=== PATIENT | male | born 1975 | race Caucasian/White ===

== ENCOUNTER 2022-11-20 14:05 | Outpatient (CLI) | payer BC, SELFPAY ==
--- NOTE | 2022-11-20 14:30 | CRLHL7_ITS ---
For Patients: As a result of the Century Cures Act, medical imaging exams and procedure reports are released immediately into your electronic medical record. You may view this report before your referring provider. If you have questions, please contact your health care provider. Indication: Lumbar disc herniation. Technique: Noncontrast sagittal and axial T1, T2, and sagittal STIR sequences are provided. Comparison: MRI 06/08/2021 Findings: Normal lumbar lordosis. No fractures. No prevertebral or paraspinal edema. No aggressive osseous lesions. The conus medullaris is normal in signal and location. Multilevel anterior osteophytic spurring and disc dehydration. Sacroiliac joint degenerative changes. T12-L1: Stable right paracentral disc protrusion that indents the ventral thecal sac. No significant spinal canal stenosis or neural foramen narrowing. Unchanged. L1-2: Moderate interspace narrowing. Circumferential disc bulge. Mild spinal canal stenosis. No neural foramina narrowing. Unchanged L2-3: Circumferential disc bulge and endplate osteophytic spurring. Bilateral facet arthrosis and left facet joint effusion. Stable mild spinal canal stenosis. Stable mild right neural foramen narrowing. Unchanged. L3-4: Enlargement of broad-based left paracentral disc herniation that results in new severe left subarticular recess stenosis and impingement of traversing left L4 nerve roots. Mild left neural foramen narrowing. No right neural foramen narrowing L4-5: Enlargement of central disc herniation and stable bilateral moderate facet arthrosis and ligamentum flavum buckling. Worsening severe spinal canal stenosis. Stable mild right neural foramen narrowing. No left neural foramen narrowing. L5-S1: Stable moderate facet arthrosis. No significant spinal canal stenosis or neural foramen narrowing. Unchanged. Impression: 1. No acute osseous or ligamentous abnormality. Stable alignment. 2. At L3-4, enlargement of left paracentral disc herniation results in new severe left subarticular recess stenosis and impingement of traversing L4 nerve roots. 3. At L4-5, enlargement of central disc herniation and stable facet arthrosis resulting in worsening severe spinal canal stenosis. 4. No high-grade neural foramen narrowing. Otherwise stable lumbar spondylosis at remaining levels. Dictated by Vikas Woods MD @ 11/21/2022 2:07:36 PM (Electronically Signed)
== END 2022-11-20 14:06 | disposition home or self-care (01) ==
PROVIDERS: PCP Family Medicine; Visit Provider Family Medicine
DX: M51.26 Other intervertebral disc displacement, lumbar region (principal); M48.062 Spinal stenosis, lumbar region with neurogenic claudication; M54.16 Radiculopathy, lumbar region
CPT/HCPCS: 72148

== ENCOUNTER 2022-12-25 07:07 | Outpatient (CLI) | payer BC, SELFPAY | END 2022-12-25 07:08 | disposition home or self-care (01) | PROVIDERS: PCP Family Medicine; Visit Provider Family Medicine | DX: M48.062 Spinal stenosis, lumbar region with neurogenic claudication (principal); M54.16 Radiculopathy, lumbar region | CPT/HCPCS: 62323; J0702; Q9966 ==

== ENCOUNTER 2023-07-16 09:10 | Outpatient (CLI) | payer BC, SELFPAY | END 2023-07-16 09:11 | disposition home or self-care (01) | LOC: INJ CL 09:10 | PROVIDERS: PCP Family Medicine; Visit Provider Family Medicine | DX: M54.16 Radiculopathy, lumbar region (principal); M51.26 Other intervertebral disc displacement, lumbar region; M48.062 Spinal stenosis, lumbar region with neurogenic claudication | CPT/HCPCS: 62323; J0702; Q9966 ==

== ENCOUNTER 2023-10-23 07:56 | Emergency (ER) | payer BC, SELFPAY ==
[2023-10-23 07:59] VITALS: BP 187/99; PULSE 69; RESP 20; TEMP 36.2; O2SAT 98; BMI 44.9
[2023-10-23 08:13] VITALS: O2SAT 95
--- NOTE | 2023-10-23 08:13 | CRLHL7_ITS ---
For Patients: As a result of the Century Cures Act, medical imaging exams and procedure reports are released immediately into your electronic medical record. You may view this report before your referring provider. If you have questions, please contact your health care provider. INDICATION: Chest pain TECHNIQUE: CT chest PE was acquired with 95 cc Isovue 370 intravenous contrast. COMPARISON: None. FINDINGS: Heart and vasculature: Contrast opacification of the pulmonary arterial tree is adequate. No sign of pulmonary embolism. Thoracic aorta is normal in caliber. No pericardial effusion. Lungs and pleural: No pleural effusion or pneumothorax. No focal consolidation. Lymph nodes/mediastinum: No mediastinal, hilar, or axillary adenopathy. Chest wall: No masses. Upper abdomen: Diffusely decreased density of the liver without focal intrahepatic lesion. Bones: Unremarkable for age. IMPRESSION: 1. No evidence of pulmonary embolus. 2. No acute pulmonary consolidation. 3. Moderate hepatic steatosis. Please note that all CT scans at this facility use dose modulation, iterative reconstruction, and/or weight-based dosing when appropriate to reduce radiation dose to as low as reasonably achievable. Dictated by Todd Flores MD @ 10/23/2023 9:01:55 AM (Electronically Signed)
[2023-10-23] MEDS: ASPIRIN 81 MG TAB.CHEW 324 MG PO (08:21)
[2023-10-23 08:30] LABS: Basophils Absolute Auto 0.05 K/uL (0.00-0.30); Basophils Percent Auto 0.7 % (0.0-3.0); Eosinophils Percent Auto 1.4 % (0.0-7.0); Hematocrit 44.8 % (37.0-53.0); Immature Granulocytes Abs Auto 0.02 K/uL (0.00-0.30); Immature Granulocytes Pct Auto 0.3 %; Lymphocytes Absolute Auto 2.01 K/uL (0.90-2.90); Lymphocytes Percent Auto 28.6 % (20-44); Mean Corpuscular HGB Conc 34 gm/dL (32-36); Mean Corpuscular Hemoglobin 29 pg (26-34); Mean Corpuscular Volume 87 fL (80-100); Monocytes Percent Auto 12.8 % (0.0-11.0); Neutrophils Absolute Auto 3.94 K/uL (1.7-7.0); Neutrophils Percent Auto 56.2 % (42.0-72.0); Platelet Count* 188 K/uL (140-440); RDW Coefficient of Variation % 12.8 % (11.5-15.5); Red Blood Count 5.14 m/uL (4.30-5.90); White Blood Count* 7.02 K/uL (4.50-11.00)
[2023-10-23 08:31] LABS: Slide Review Reflex No
[2023-10-23 08:42] LABS: Chloride* 106 mmol/L (96-114)
[2023-10-23 08:43] LABS: Potassium* 4.2 mmol/L (3.6-5.1); Sodium* 140 mmol/L (135-149)
[2023-10-23 08:45] LABS: Creatinine* 0.8 mg/dL (0.5-1.5); Est. Creatinine Clearance* 131.29; Estimated Glomerular Filt Rate 109 ml/min
[2023-10-23 08:46] LABS: Anion Gap 8 mEq/L (7-15); Blood Urea Nitrogen* 15 mg/dL (5-24); Calcium* 9.2 mg/dL (8.4-10.6); Carbon Dioxide* 26 mmol/L (20-32); Glucose* 112 mg/dL (60-115)
[2023-10-23 08:49] LABS: C Reactive Protein* 0.7 mg/dL (0.5-1.0)
--- NOTE | 2023-10-23 09:03 | ED_ITS ---
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 Worse when he flexes and extends his shoulders, and also when he reaches out laterally or squeezes arms type together. He has had a slight dry cough I think that is related to allergies. 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 He has had no bleeding or clotting problems, no leg swelling or edema. He has had no nausea, diaphoresis, left arm right arm pain, no neck pain. The patient has had hypertension and is on a small dose of lisinopril. No fevers, no trauma or injury to the chest. 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 Related Data Home Medications ?Medication ?Instructions ?Recorded ?Confirmed lisinopril 10 mg tablet 10 mg PO DAILY 10/23/23 10/23/23 Allergies Allergy/AdvReac Type Severity Reaction Status Date / Time Penicillins Allergy Verified 10/23/23 08:02 Review of Systems Status of ROS: Reports: 6 or more systems reviewed and unremarkable except as noted in History and below Exam Narrative: Exam Narrative: Objective: Vital signs show elevated blood pressure, O2 sat is 95-90% on room air No apparent distress pleasant man No cyanosis No scleral edema, no facial asymmetry Neck is supple Chest clear Heart rhythm regular heart murmur Abdomen benign soft nontender Abdomen extremities are no edema neurologic nonfocal, good peripheral perfusion noted Const: Vital Signs, click to edit/add: Vital Signs - 24 hr 10/23/23 07:59 10/23/23 08:13 10/23/23 09:18 Temperature 97.1 F L Pulse Rate [Right Pulse Oximeter] 69 62 Respiratory Rate 20 20 Blood Pressure [Ri ght Upper Arm] 187/99 H Pulse Oximetry 98 95 98 Oxygen Delivery Me thod Room Air Room Air Course Vital Signs Vital signs: Initial Vital Signs Temperature 97.1 F L 10/23/23 07:59 Temperature Source Temporal Artery Scan 10/23/23 07:59 Pulse Rate 69 10/23/23 07:59 Respiratory Rate 20 10/23/23 07:59 Blood Pressure 187/99 H 10/23/23 07:59 Blood Pressure Mean 128 H 10/23/23 07:59 Blood Pressure Position Sitting 10/23/23 07:59 Pulse Oximetry 98 10/23/23 07:59 Oxygen Delivery Method Room Air 10/23/23 07:59 Vital Signs Temperature 97.1 F L 10/23/23 07:59 Pulse Rate 69 10/23/23 07:59 Respiratory Rate 20 10/23/23 07:59 Blood Pressure 187/99 H 10/23/23 07:59 Pulse Oximetry 98 10/23/23 07:59 Oxygen Delivery Method Room Air 10/23/23 07:59 Temperature 97.1 F L 10/23/23 07:59 Pulse Rate 62 10/23/23 09:18 Respiratory Rate 20 10/23/23 09:18 Blood Pressure 187/99 H 10/23/23 07:59 Pulse Oximetry 98 10/23/23 09:18 Oxygen Delivery Method Room Air 10/23/23 09:18 Medications Administered Medications: Discontinued Medications Generic Name Dose Route Start Last Admin Trade Name Neema PRN Reason Stop Dose Admin Aspirin 324 mg 10/23/23 08:13 10/23/23 08:21 Aspirin 81 Mg Tab.Chew PO 10/23/23 08:14 324 mg ONCE ONE Administration Medical Decision Making [facility] Narrative Medical decision making narrative: 40-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 At this point it does not sound cardiac. Sounds more soft tissue related specially since it is worse with movement. 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 Will give him aspirin now and he was comfortable this plan. Addendum 9:07 a.m.: Given the patient's duration of symptoms I do not think a repeat troponin is necessary given his troponin now is 0, his EKG shows normal sinus rhythm normal EKG by my read. His CT scan of the chest is unremarkable for PE or consolidation. I think observation at this point, Advil or an anti- inflammatory for 5-7 days would be reasonable and a recheck with regular doctor as needed. Patient was comfortable plan. Lab Data Labs: Lab Results 10/23/23 10/23/23 Range/Units 08:14 08:15 WBC 7.02 (4.50-11.00) K/uL RBC 5.14 (4.30-5.90) m/uL Hgb 15.0 (13.5-17.5) gm/dL Hct 44.8 (37.0-53.0) % MCV 87 (80-100) fL MCH 29 (26-34) pg MCHC 34 (32-36) gm/dL RDW Coeff of Delphine 12.8 (11.5-15.5) % Plt Count 188 (140-440) K/uL Neut % (Auto) 56.2 (42.0-72.0) % Lymph % (Auto) 28.6 (20-44) % [place] % (Auto) 12.8 H (0.0-11.0) % Eos % (Auto) 1.4 (0.0-7.0) % Baso % (Auto) 0.7 (0.0-3.0) % Neut # (Auto) 3.94 (1.7-7.0) K/uL Lymph # (Auto) 2.01 (0.90-2.90) K/uL [place] # (Auto) 0.90 (0.00-0.90) K/UL Eos # (Auto) 0.10 (0.00-0.50) K/uL Baso # (Auto) 0.05 (0.00-0.30) K/uL Abs Immat Gran (auto) 0.02 (0.00-0.30) K/uL Imm/Tot Granulo (auto) 0.3 % Sodium 140 (135-149) mmol/L Potassium 4.2 (3.6-5.1) mmol/L Chloride 106 (96-114) mmol/L Carbon Dioxide 26 (20-32) mmol/L Anion Gap 8 (7-15) mEq/L BUN 15 (5-24) mg/dL Creatinine 0.8 (0.5-1.5) mg/dL Estimated Creat Clear 131.29 Estimated GFR 109 ml/min Glucose 112 (60-115) mg/dL Calcium 9.2 (8.4-10.6) mg/dL C-Reactive Protein 0.7 (0.5-1.0) mg/dL POC Troponin I 0.00 L (0.01-0.04) ng/ml Discharge Plan Discharge Clinical Impression: Acute chest wall pain Patient Disposition: Home, Self-Care Condition: Stable Additional Instructions: Avoid heavy lifting but certainly can be active, Advil 2 tablets 3 times a day for the next 5-7 days, return and see her regular doctor as needed. Return to ED problems or concerns. Activity Level: Light activity Activity Detail: Would avoid heavy lifting over 50 lb of possible Discharge Diet: Regular Prescriptions: No Action lisinopril 10 mg tablet 10 mg PO DAILY Follow Up/Referrals: Kai Stein MD [Primary Care Provider] - Stand Alone Forms: [employer] Info Instructions
[2023-10-23 09:18] VITALS: PULSE 62; RESP 20; O2SAT 98
== END 2023-10-23 09:19 | disposition home or self-care (01) ==
PROVIDERS: Emergency Provider Family Medicine; PCP Family Medicine
DX: R07.89 Other chest pain (principal)
CPT/HCPCS: 36415; 71275; 80048; 84484; 85025; 86140; 93005; 94761; 99284; 99285; A9270; Q9967

== ENCOUNTER 2024-05-08 07:14 | Outpatient (CLI) | payer BC, SELFPAY | END 2024-05-08 07:15 | disposition home or self-care (01) | LOC: INJ CL 07:16 | PROVIDERS: PCP Family Medicine; Visit Provider Family Medicine | DX: M54.16 Radiculopathy, lumbar region (principal); M51.26 Other intervertebral disc displacement, lumbar region | CPT/HCPCS: 62323; J0702; Q9966 ==

== ENCOUNTER 2024-05-23 22:03 | Emergency (ER) | payer BC, SELFPAY ==
--- OUTSIDE RECORDS SUMMARY | 2024-05-23 22:05 | XMS_ITS | Clinical Summary ---
Author Organization [facility] Address [place], [place] [address] Care Team Providers Care Registration Rep Name Role Phone Tate Coreas MD Unavailable [phone] Kai Stein MD Primary Care Provider [phone] Earl Sam MD Unavailable Allergies Active Allergy Reactions Criticality Noted Date Comments Penicillins Nausea And Vomiting Low 02/10/2016 Medications indomethacin (INDOCIN) 50 mg capsuleIndication s:History of gout Take 1 Capsule (50 mg) by mouth three times daily with meals. Take 1 tablet three times daily for 3 days as needed for a gout attack. 9 Capsule 1 02/14/20 24 Active methylPREDNISolon e (Medrol, Claudio,) 4 mg tabletIndications :Lumbar radiculopathy Take by mouth as instructed per packaging. 21 Tablet 05/01/19 25 Active lisinopriL (PRINIVIL; ZESTRIL) 10 mg tabletIndications :Essential hypertension Take 1 Tablet (10 mg) by mouth once daily. 90 Tablet 2 05/11/19 25 Active lisinopriL (PRINIVIL; ZESTRIL) 10 mg tabletIndications :Essential hypertension Take 1 Tablet (10 mg) by mouth once daily. 90 Tablet 3 04/01/20 24 025 Discontin ued(*Avai lability/ Formulary change/Co st of medicatio n) Active Problems Problem Noted Date Diagnosed Date Lumbar radiculopathy 11/02/2022 Cellulitis of skin overlying right elbow w/o joint involvement 05/25/2011 Fatty liver 07/07/2008 Dysthymic disorder 12/09/2006 Premature ejaculation 12/09/2006 Gout Resolved Problems Problem Noted Date Diagnosed Date Resolved Date Impotence of organic origin 12/09/2006 12/09/2006 Encounters Date Type Department Care Team Description 05/10/2024 Refill [facility] [address] [facility] [address] Kai Stein MD Refill Request (Lisinopril) 05/08/2024 7:40 AM [employer]ATCH [employer]AL M[employer]DER Office Visit [facility] at [address] [address] Earl Sam MD Procedure (L4-5 ILESI) 05/07/2024 Travel 05/01/2024 Medical Messaging [facility] [address] [place] [address] Earl Sam MD Dawson carey 04/02/2024 Telephone [facility] [address] [place] [address] Valentin Hunt MD Error-please disregard 04/01/2024 3:40 PM [employer] Office Visit [facility] [address] [place] [address] Kai Stein MD Physical (48 years/Review blood pressure) 03/31/2024 Travel 02/28/2024 Refill [facility] [address] [place] [address] Kai Stein MD Refill Request (Indomethacin) 02/27/2024 Refill [facility] [address] [place] [address] Kai Stein MD Refill Request (Indomethacin) 02/26/2024 Refill [facility] [address] [place] [address] Kai Stein MD Refill Request (Indomethacin) 02/25/2024 Refill [facility] [address] [place] [address] Kai Stein MD Refill Request (Indomethacin) from Last 3 Months Immunizations Name Administration Dates Next Due Td (Age >=7 Years) 09/21/1996 Tdap 02/13/2023,09/16/2006 Family History Medical History Relation Name Comments Other cancer Father Adopted by this Dad Cancer-breast Sister Remission Relation Name Status Comments Father Alive Mother Alive Sister Alive Social History Tobacco Use Types Packs/Day Years Used Date Smoking Tobacco: Never Smokeless Tobacco: Never Tobacco Cessation:Counseling Given: Not Answered Alcohol Use Standard Drinks/Week Comments Not Currently 0 (1 standard drink = 0.6 oz pure alcohol) very little; less than 6 per months PHQ-2 Answer Date Recorded PHQ-2 TOTAL SCORE 0 04/01/2024 Social Connections Answer Date Recorded Do you often feel lonely or isolated from those around you? 0 04/01/2024 Alcohol Use Answer Date Recorded How often do you have a drink containing alcohol ? 1 04/01/2024 How many drinks containing a lcohol do you have on a typical day when you are drinking? 0 04/01/2024 How often do you have five or more drinks on one occasion? 0 04/01/2024 Financial Resource Strain Answer Date R ecorded Difficulty of Paying Living Expenses 3 04/01/2024 Difficulty of Paying Living Expenses Not on file 04/01/2024 Food Insecurity Answer Date Recorded Do you worry your food will run out before you are able to buy more? 1 04/01/2024 Transportation Needs Answer Date Record ed Does lack of transportation keep you from medica l appointments? 1 04/01/2024 Does lack of transportation keep you from work, meetings or getting things that you need? 1 04/01/2024 Housing Stability Answer Date Recorded What is your housing situation today? 1 04/01/2024 Utilities Answer Date Recorded Do you have trouble paying f or utilities (for example, heat, electricity, water, phone)? 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 Not on file Not on file Not on file Obstetrics History Last Filed Vital Signs Vital Sign Reading Time Taken Comments Blood Pressure 138/88 04/01/2024 4:28 PM [employer] Pulse 66 04/01/2024 4:02 PM [employer] Temperature 36.4 C (97.5 F) 04/01/2024 4:02 PM [employer]AL [employer]DER Respiratory Rate 16 07/12/2011 1:36 PM CDT Oxygen Saturation 98% 04/01/2024 4:02 PM [employer]AL M[employer]DER Inhaled Oxygen Concentration - - Weight 164.8 kg (363 lb 6.4 oz) 04/01/2024 4:02 PM [employer]AL M[employer] Height 187.5 cm (6' 1.82) 04/01/2024 4:02 PM CS T Body Mass Index 46.89 04/01/2024 4:02 PM [employer]AL M[employer]DER Plan of Treatment Upcoming Encounters Date Type Department Care Team (Late st Contact Info) Description 07/02/2024 3:00 PM CDT Office Visit [facility] [address] [place] [address] Earl Sam MD [address] [place] [address] Health Maintenance Due Date Last Done Comments Colonoscopy through age 75 06/30/2020 COVID-19 vaccine series ( season) 2023 Influenza for age 9-49 12/15/2023 BMI (ht and wt on same day) for age 18+ 04/01/2025 04/01/2024, 02/13/2023, 05/28/2019, Additional history exists Depression screening for age 12+ 04/02/2025 04/02/2024, 04/01/2024, 02/13/2023, Additional history exists Lipids for age 45-75 04/01/2029 04/01/2024, 04/12/20 23 Tetanus booster 02/13/2033 02/13/2023, 0607/2006, 09/21/1996 Tdap Completed 02/13/2023, 09/16/2006 HIV for age 15-65 Completed 04/12/2023 Hepatitis C screening for age 18-79 Completed 04/12/2023 Pneumococcal series for age 6-49 Aged Out No longer eligible based on patient's age to complete this topic Procedures Procedure Name Priority Date/Time Associated Diagnosis Comments AMB EPIDURAL STEROID INJECTION Routine 05/08/2024 8:16 AM WATCH [employer]STAL M[employer]DER Lumbar radiculopathy Lumbar disc herniation Spinal stenosis of lumbar region with neurogenic claudication MI NJX DX/THER SBST INTRLMNR LMBR/SAC W/IMG GDN Routine 05/08/2024 12:00 AM [employer]STAL M[employer]DER Lumbar radiculopathy Lumbar disc herniation Spinal stenosis of lumbar region with neurogenic claudication BASIC METABOLIC PANEL Routine 04/01/2024 4:52 PM WATCH [employer]STAL M[employer]DER Essential hypertension LIPID PANEL W REFLEX MEASURED LDL Routine 04/01/2024 4:52 PM WATCH [employer]STAL MOLDER Lipid screening ANTI HIV 1/2 Routine 04/12/2023 3:07 PM [employer]AL [employer] Screening for HIV (human immunodeficiency virus) ANTI HCV Routine 04/12/2023 3:07 PM [employer]AL [employer] Need for hepatitis C screening test from Last 3 Months or Most Recently Relevant to Health Maintenance Results * MI NJX DX/THER SBST INTRLMNR LMBR/SAC W/IMG GDN (05/08/2024 12:00 AM WATCH CRYSTAL MOLDER) us Earl Sam MD PB - NERVOUS SYSTEM SERVIC ES Final Result * (ABNORMAL) LIPID PANEL W REFLEX MEASURED LDL (04/01/2024 4:52 PM WATCH CRYSTAL MOLDER) CHOLESTEROL, TOTAL 169 <200 mg/dL [facility] HDL CHOLESTEROL 34(L) > OR = 40 mg/dL [facility] TRIGLYCERIDES 199(H) <150 mg/dL [facility] LDL-CHOLESTEROL 103(H) mg/dL (calc) [facility] Comment: Reference range: <100 Desirable range <100 mg/dL for primary prevention; <70 mg/dL for patients with CHD or diabetic patients with > or = 2 CHD risk factors. LDL-C is now calculated using the Keily calculation, which is a validated novel method providing better accuracy than the Friedewald equation in the estimation of LDL-C. Valentin PEPE et al. CHITO. 2013;310(19): 8527-3396 (http://education.OnlineMarket/faq/QGW539) CHOL/HDLC RATIO 5.0(H) <5.0 (calc) [facility] NON HDL CHOLESTEROL 135(H) <130 mg/dL (calc) [facility] Comment: For patients with diabetes plus 1 major ASCVD risk factor, treating to a non-HDL-C goal of <100 mg/dL (LDL-C of <70 mg/dL) is considered a therapeutic option. Blood BLOOD SPECIMEN / Unknown 04/01/2024 4:52 PM WATCH CR[employer]STAL MOLDER 04/01/2024 4:53 PM WATCH CRYSTAL MOLDER us Kai Stein MD CHEMISTRY Final Resu lt [facility] [address] [place] [address], [facility] [address] [place] [address] * BASIC METABOLIC PANEL (04/01/2024 4:52 PM WATCH CRYSTAL MOLDER) GLUCOSE 92 65 - 99 mg/dL [facility] Comment: Fasting reference interval UREA NITROGEN (BUN) 14 7 - 25 mg/dL [facility] CREATININE 0.89 0.60 - 1.29 mg/dL [facility] EGFR 106 > OR = 60 mL/min/1. 73m2 [facility] BUN/CREATININE RATIO SEE NOTE: 6 - 22 (calc) [facility] Comment: Not Reported: BUN and Creatinine are within reference range. SODIUM 139 135 - 146 mmol/L [facility] POTASSIUM 4.5 3.5 - 5.3 mmol/L [facility] CHLORIDE 103 98 - 110 mmol/L [facility] CARBON DIOXIDE 28 20 - 32 mmol/L [facility] ELECTROLYTE BALANCE 8 7 - 17 mmol/L (calc) [facility] CALCIUM 9.3 8.6 - 10.3 mg/dL [facility] Blood BLOOD SPECIMEN / Unknown 04/01/2024 4:52 PM WATCH CRYSTAL MOLDER 04/01/2024 4:53 PM WATCH [employer]YSTAL MOLDER Kai Stein MD CHEMISTRY Final Resu lt [facility] [address] [place] [address], [facility] [address] [place] [address] * ANTI HCV (04/12/2023 3:07 PM WATCH CRYSTAL MOLDER) HEPATITIS C ANTIBODY Non-Reacti ve Non-React xiang 04/12/2023 8:41 PM WATCH CRYSTAL MOLDER [facility] Comment:Please note, per www .CDC.gov: If a patient is known to be at high risk of HCV infection, or is symptomatic, and the physician's suspicion of HCV infection is high, HCV RNA testing is often employed and is of diagnostic value, even after an initial negative anti-HCV test result. Blood BLOOD SPECIMEN / Unknown Venipuncture / Unknown 04/12/2023 3:07 PM WATCH CRYSTAL MOLDER 04/12/2023 3:07 PM WATCH CRYSTAL MOLDER Kai Stein MD SEND OUTS Final Resu lt [facility] [address] [place] [address], [place] * ANTI HIV 1/2 [66073.0] (04/12/2023 3:07 PM WATCH CRYSTAL MOLDER) HIV-1/HIV-2 SCREEN Non-Reacti ve Non-Reacti ve 04/12/2023 8:27 PM [employer]AL M[employer]DER [facility] Comment:HIV-1 p24 and HIV-1/ HIV-2 Ab Not Detected. Blood BLOOD SPECIMEN / Unknown Venipuncture / Unknown 04/12/2023 3:07 PM WATCH CRYSTAL MOLDER 04/12/2023 3:07 PM WATCH CRYSTAL MOLDER us Kai Stein MD SEND OUTS Final Resu lt [facility] [address] [place] [address], [place] from Last 3 Months or Most Recently Relevant to Health Maintenance Insurance [facility] Care Teams Registration Rep Relationship Specialty Start Date End Date Kai Stein MD [address] [place] [address] PCP - General Family Practice 10/25/22 Tate Coreas MD Infectious Disease Infectious Diseases 06/21/11 Earl Sam MD [address] [place] [address] Sports Medicine - Family Medicine 10/25/22
--- OUTSIDE RECORDS SUMMARY | 2024-05-23 22:05 | XMS_ITS | Continuity of Care Document ---
Author Organization [facility] Address [address] [place] [address] Phone Care Team Providers Care Engineer Specialist Name Role Phone Mallory PATEL, PhD, Francois Unavailable Unavai lable Allergies, Adverse Reactions, Alerts Substance Reaction Status Criticality PENICILLIN Active No Information Medications Medication Instructions Dosage Effective Dates (start - stop) Status Comments TYLENOL (unknown strength) Not Available - Active GABAPENTIN (unknown strength) Not Available - Active TIZANIDINE HCL (unknown strength) Not Available - No Longer Active SENNA (unknown strength) Not Available - No Longer Active GABAPENTIN (unknown strength) Not Available - No Longer Active PERCOCET (unknown strength) Not Available - No Longer Active Procedures Procedure Date Office/Outpatient Visit,Est, Mod 2021 Office/Outpatient Visit,Est, Low 2019 Office/Outpatient Visit,Est, Mod 2019 X-Ray Exam Lwr Spine, Min 4 Views Office/Outpatient Visit,New, Mod 2018 Advance Directives Directive Yes / No Effective Date File Name No Information Encounters Encounter Description Practice Location Reason(s) For Visit Diagnoses Date Provider Providers Copied on Encounter Office/Outpat ient Visit,Est, Mod [facility], [address], [facility] [place], [id number], [place] tel:[phone] [facility] - [facility] [place] Other intervertebral disc displacement, lumbar region Jun- 2 Mallory Parrish. [facility] [place], [address], [place], [address], [place]. tel:[phone] Referring Provider: Vikas Thakur, [facility] [address] [place], [address]. tel:[phone] Office/Outpat ient Visit,Est, Low [facility], [address], [facility] [place], [id number], [place] tel:[phone] [facility] Other intervertebral disc displacement, lumbar region 0 Tejada Francois. [facility] [place], [address], [facility], [address], [place]. tel:[phone] Referring Provider: Vikas Thakur, [facility] [address] [place], [address]. tel:[phone] Office/Outpat ient Visit,Est, Mod [facility], [address], [facility] [place], [id number], [place] tel:[phone] [facility] Other intervertebral disc displacement, lumbar region 0 Mallory Parrish. [facility], [address], [place], [address], [place]. tel:[phone] Referring Provider: Vikas Thakur, [facility] [address] [place], [address]. tel:[phone] Office/Outpat ient Visit,New, Mod [facility], [address], [facility], [id number], [place] tel:[phone] [facility] Other intervertebral disc displacement, lumbar region 9 Colom Steffany Kessler. [facility] [place], [address], [place], [address], [place]. tel:[phone] Referring Provider: Vikas Thakur, [facility] [address] [place], [address]. tel:[phone] Family History Family Member Type Diagnosis Age At Onset No Information Payers Payer name Insurance type Covered republican ID Nhan meza(s) [facility] [id number] [facility] [id number] Social History Type Description Quantity Date Captured Comments Alcohol Use Details Unknown Caffeine Use Details Unknown Tobacco Use Status Never smoked tobacco 2021 Smoking Status Never smoker Non-Smoking Tobacco Use Details : No Details Available : No Details Available Sex Male Vital Signs Date / Time: Height Weight BMI Pulse Rate Blood Pressure Temperature Respiratory Rate Body Surface Area Head Circumference Head Circ. Percentile Wt./Bk. Percentile BMI percentile Pulse Ox Inhaled Ox 3:40 PM 73.50 in 161.479 kg (356.00 lbs) 46.3 3 kg/m eter (2) Chief Complaint And Reason For Visit No Information Reason For Referral Reason For Referral No Information History Of Present Illness Encounter Date Complaint History Of Prese nt Illness No Information Functional Status Date Functional Assessmen t No Information Instructions Date Instruction Additional Infor mation No Information Assessments Type Assessment Date assessment Other intervertebral disc displa cement, lumbar region Patient Care Teams Name Effective Dates (start - stop) Status Members No Information
[2024-05-23 22:07] VITALS: BP 148/91; PULSE 75; RESP 22; TEMP 37.3; O2SAT 95; BMI 46.2
--- NOTE | 2024-05-23 22:17 | CRLHL7_ITS ---
For Patients: As a result of the Century Cures Act, medical imaging exams and procedure reports are released immediately into your electronic medical record. You may view this report before your referring provider. If you have questions, please contact your health care provider. Indication: Thrombophlebitis. Technique: Ultrasound venous duplex left upper extremity. Compression venous exam was performed using sun-scale, color Doppler, and spectral Doppler imaging. Comparison: None. Findings: LEFT Internal jugular: Patent. Innominate: Patent. Subclavian: Patent. Axillary: Patent. Brachial: Patent. Basilic: Patent. Cephalic: Patent. Along the radial aspect of the wrist, there is a mildly complex small subcutaneous focus without a discrete connection to the vascular system. No internal blood flow on color Doppler imaging. Impression: 1. No deep vein thrombosis in the left upper extremity. 2. Small subcutaneous focus along the radial aspect of the left wrist, which is nonspecific, but could reflect a hematoma. No discrete evidence of thrombophlebitis. Dictated by Padilla Dupont MD @ 05/24/2024 12:09:00 AM (Electronically Signed)
--- NOTE | 2024-05-23 22:20 | ED.GENADULT ---
HPI - General Adult General Chief complaint: Extremity Pain/Injury, Upper <Wilma Stallworth MD - Last Filed: 05/23/24 23:50> Stated complaint: left wrist bump <Wilma Stallworth MD - Last Filed: 05/23/24 23:50> Time Seen by Provider: 05/23/24 22:12 <Wilma Stallworth MD - Last Filed: 05/23/24 23:50> Source: patient <Wilma Stallworth MD - Last Filed: 05/23/24 23:50> Mode of arrival: ambulatory <Wilma Stallworth MD - Last Filed: 05/23/24 23:50> Limitations: no limitations <Wilma Stallworth MD - Last Filed: 05/23/24 23:50> History of Present Illness HPI narrative: 48-year-old male presenting today with a bump on his anterior left wrist. Noticed it yesterday. Today was much more tender. He feels it is bigger today as well. Denies any systemic symptoms. Specifically he denies any shortness of breath or cough. No leg pain. No chest discomfort. Patient did drive 6 hours to [facility] approximately 1 week ago. Denies any recent surgery. Denies tobacco use. Denies personal or family history of DVT. <Wilma Stallworth MD - Last Filed: 05/23/24 23:50> Related Data Home medications: Home Medications ?Medication ?Instructions ?Recorded ?Confirmed lisinopril 10 mg tablet 10 mg PO DAILY 10/23/23 05/23/24 indomethacin 50 mg capsule mg 3XD 05/23/24 <Wilma Stallworth MD - Last Filed: 05/23/24 23:50> Allergies/adverse reactions: Allergies Allergy/AdvReac Type Severity Reaction Status Date / Time Penicillins Allergy Verified 05/23/24 22:10 <Wilma Stallworth MD - Last Filed: 05/23/24 23:50> Review of Systems Status of ROS: Reports: 6 or more systems reviewed and unremarkable except as noted in History and below <Wilma Stallworth MD - Last Filed: 05/23/24 23:50> PFSH PFSH Social History: Social History Smoking Status: Never smoker Do you use any of these nicotine containing products: None Second hand tobacco smoke exposure: No How often do you have a drink containing alcohol: never AUDIT-C Alcohol total score: 0 Non-prescribed substance use: denies use <Wilma Stallworth MD - Last Filed: 05/23/24 23:50> Exam Narrative: Exam Narrative: Obese, well-developed patient in no acute distress. Alert and oriented. Answers questions appropriately. Mood and affect are appropriate. Thoughts are goal oriented and rational. No tangential or magical thinking noted. Patient speaks in full sentences without needing to catch his breath. HEENT: Normocephalic atraumatic. Pupils are equally round reactive to light. Extraocular muscles are intact. Conjunctivae are moist without any icterus noted. Moist mucous membranes. Lungs: Clear to auscultation bilaterally. Extremities: Anterior right lateral wrist patient has what a firm cord like structure that is tender. There is very mild increased pink coloration of the skin over it, no induration, heat or fluctuance. Skin: Well perfused. <Wilma Stallworth MD - Last Filed: 05/23/24 23:50> Const: Vital Signs, click to edit/add: Vital Signs - 24 hr 05/23/24 22:07 Temperature 99.2 F Pulse Rate [Pulse Oximeter] 75 Respiratory Rate 22 Blood Pressure [Ri ght Upper Arm] 148/91 H Pulse Oximetry 95 Oxygen Delivery Me thod Room Air <Wilma Stallworth MD - Last Filed: 05/23/24 23:50> Vital Signs, click to edit/add: Vital Signs - 24 hr 05/23/24 22:07 Temperature 99.2 F Pulse Rate [Pulse Oximeter] 75 Respiratory Rate 22 Blood Pressure [Ri ght Upper Arm] 148/91 H Pulse Oximetry 95 Oxygen Delivery Me thod Room Air <Delaney Hernandez MD - Last Filed: 05/24/24 00:19> Course Course ED Course: Physical examination is consistent with a superficial thrombophlebitis. We did ultrasound the upper extremity to rule out any underlying DVT and this was negative. <Wilma Stallworth MD - Last Filed: 05/23/24 23:50> Reevaluation(s) Time of Reevaluation #1: 00:18 <Delaney Hernandez MD - Last Filed: 05/24/24 00:19> Reevaluation #1: Dr. Hernandez- I assumed care from Dr. Stallworth. Patient without evidence of DVT on ultrasound. Suspect a very small superficial thrombophlebitis versus a hematoma. Hematoma suggested by radiologist. I have examined the wrist and have a similar impression as Dr. Stallworth. Patient counseled on findings, no specific treatment is needed. Counseled on anti-inflammatories as needed for discomfort, okay to perform all typical duties. Alarm symptoms of infection were reviewed as indications to come back to the ED. written instructions provided, all questions answered <Delaney Hernandez MD - Last Filed: 05/24/24 00:19> Vital Signs Vital signs: Initial Vital Signs Temperature 99.2 F 05/23/24 22:07 Temperature Source Temporal Artery Scan 05/23/24 22:07 Pulse Rate 75 05/23/24 22:07 Pulse Rhythm Regular 05/23/24 22:07 Pulse Strength 3+ Normal 05/23/24 22:07 Respiratory Rate 22 05/23/24 22:07 Blood Pressure 148/91 H 05/23/24 22:07 Blood Pressure Mean 110 H 05/23/24 22:07 Blood Pressure Position Sitting 05/23/24 22:07 Pulse Oximetry 95 05/23/24 22:07 Oxygen Delivery Method Room Air 05/23/24 22:07 Vital Signs Temperature 99.2 F 05/23/24 22:07 Pulse Rate 75 05/23/24 22:07 Respiratory Rate 22 05/23/24 22:07 Blood Pressure 148/91 H 05/23/24 22:07 Pulse Oximetry 95 05/23/24 22:07 Oxygen Delivery Method Room Air 05/23/24 22:07 Temperature 99.2 F 05/23/24 22:07 Pulse Rate 75 05/23/24 22:07 Respiratory Rate 22 05/23/24 22:07 Blood Pressure 148/91 H 05/23/24 22:07 Pulse Oximetry 95 05/23/24 22:07 Oxygen Delivery Method Room Air 05/23/24 22:07 <Wilma Stallworth MD - Last Filed: 05/23/24 23:50> Initial Vital Signs Temperature 99.2 F 05/23/24 22:07 Temperature Source Temporal Artery Scan 05/23/24 22:07 Pulse Rate 75 05/23/24 22:07 Pulse Rhythm Regular 05/23/24 22:07 Pulse Strength 3+ Normal 05/23/24 22:07 Respiratory Rate 22 05/23/24 22:07 Blood Pressure 148/91 H 05/23/24 22:07 Blood Pressure Mean 110 H 05/23/24 22:07 Blood Pressure Position Sitting 05/23/24 22:07 Pulse Oximetry 95 05/23/24 22:07 Oxygen Delivery Method Room Air 05/23/24 22:07 Vital Signs Temperature 99.2 F 05/23/24 22:07 Pulse Rate 75 05/23/24 22:07 Respiratory Rate 22 05/23/24 22:07 Blood Pressure 148/91 H 05/23/24 22:07 Pulse Oximetry 95 05/23/24 22:07 Oxygen Delivery Method Room Air 05/23/24 22:07 Temperature 99.2 F 05/23/24 22:07 Pulse Rate 75 05/23/24 22:07 Respiratory Rate 22 05/23/24 22:07 Blood Pressure 148/91 H 05/23/24 22:07 Pulse Oximetry 95 05/23/24 22:07 Oxygen Delivery Method Room Air 05/23/24 22:07 <Delaney Hernandez MD - Last Filed: 05/24/24 00:19> Medical Decision Making MDM Narrative Medical decision making narrative: 48-year-old male with superficial thrombophlebitis. We discussed symptomatic treatment reasons for follow-up. <Wilma Stallworth MD - Last Filed: 05/23/24 23:50> Imaging Data Left upper extremity ultrasound: Attestation: I have reviewed the pertinent imaging results. <Delaney Hernandez MD - Last Filed: 05/24/24 00:19> My impression: no evidence of DVT. <Delaney Hernandez MD - Last Filed: 05/24/24 00:19> Radiologist's impression: Along the radial aspect of the wrist, there is a mildly complex small subcutaneous focus without a discrete connection to the vascular system. No internal blood flow on color Doppler imaging. Impression: 1. No deep vein thrombosis in the left upper extremity. 2. Small subcutaneous focus along the radial aspect of the left wrist, which is nonspecific, but could reflect a hematoma. No discrete evidence of thrombophlebitis. Dictated by Padilla Dupont MD @ 05/24/2024 12:09:00 AM <Delaney Hernandez MD - Last Filed: 05/24/24 00:19> Discharge Plan Discharge Clinical Impression: Hematoma <Wilma Stallworth MD - Last Filed: 05/23/24 23:50> Patient Disposition: Home, Self-Care <Wilma Stallworth MD - Last Filed: 05/23/24 23:50> Condition: Stable <Wilma Stallworth MD - Last Filed: 05/23/24 23:50> Additional Instructions: as we discussed, there are no signs of deep blood clots, just a small collection of blood right underneath the skin. This is a common area for this to happen due to the very small, easily injured superficial veins and the fact that there is just not much subcutaneous fat to pad things in this area over the bones. Typically a minor injury like bumping the wrist just right will cause a small rupture of 1 of those veins, a slight bleed under the skin. Blood in the subcutaneous area can be very irritating to the other tissues causing tenderness and swelling. Think should clear up on their own within about a week. For pain, I recommend that you Use ibuprofen 600 mg 3 times a day with food as needed for discomfort. Okay to use ice or heat to the affected area-not apply ice or heat directly to the skin and do not apply for more than 20 minutes at a time. You are cleared for all duty. rarely, infections can set in. If you develop significant redness over the wrist, a fever, shortness of breath, cough then you should return to the emergency department. <Wilma Stallworth MD - Last Filed: 05/23/24 23:50> Activity Level: No Restrictions <Wilma Stallworth MD - Last Filed: 05/23/24 23:50> No Restrictions <Delaney Hernandez MD - Last Filed: 05/24/24 00:19> Discharge Diet: Regular <Wilma Stallworth MD - Last Filed: 05/23/24 23:50> Regular <Delaney Hernandez MD - Last Filed: 05/24/24 00:19> Prescriptions: No Action lisinopril 10 mg tablet 10 mg PO DAILY indomethacin 50 mg capsule 3XD <Wilma Stallworth MD - Last Filed: 05/23/24 23:50> Follow Up/Referrals: Kai Stein MD [Primary Care Provider] - <Wilma Stallworth MD - Last Filed: 05/23/24 23:50> Stand Alone Forms: MyHealth Info Instructions <Wilma Stallworth MD - Last Filed: 05/23/24 23:50>
--- OUTSIDE RECORDS SUMMARY | 2024-05-23 22:37 | XMS_ITS | Clinical Summary ---
Author Organization [facility] Address [place], [place] [address] Care Team Providers Care Maintenance Representative Name Role Phone Tate Coreas MD Unavailable [phone] Kai Stein MD Primary Care Provider [phone] Earl Sam MD Unavailable Allergies Active Allergy [...] Type Department Care Team Description 05/10/2024 Refill [facility] [address] [place] [id number] Kai Stein MD Refill Request (Lisinopril) 05/08/2024 7:40 AM ELECTRICAL DISCHARGE MACHINE OPERATOR Office Visit [facility] at [address] [address] Earl Sam MD Procedure (L4-5 ILESI) 05/07/2024 Travel 05/01/2024 Medical Messaging [facility] [address] [place] [address] Earl Sam MD Dawson carey 04/02/2024 Telephone [facility] [address] [place] [address] Valentin Hunt MD Error-please disregard 04/01/2024 3:40 PM ELECTRICAL DISCHARGE MACHINE OPERATOR Office Visit [facility] [address] [place] [address] Kai Stein MD Physical (48 years/Review blood pressure) 03/31/2024 Travel 02/28/2024 Refill [facility] [address] [place] [address] Kai Stein MD Refill Request (Indomethacin) 02/27/2024 Refill [facility] [address] [place] [address] Kai Stein MD Refill Request (Indomethacin) 02/26/2024 Refill [facility] [address] [place] [address] Kai Stein MD Refill Request (Indomethacin) 02/25/2024 Refill [facility] [address] [place] [address] Kai Stein MD Refill Request (Indomethacin) from [...] on file Legal Sex Male 6:23 AM ELECTRICAL DISCHARGE MACHINE OPERATOR Gender Identity Not on file Sexual Orientation Not on file 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 Not on file Not on file Not on file Obstetrics History Last Filed Vital Signs Vital Sign Reading Time Taken Comments Blood Pressure 138/88 04/01/2024 4:28 PM ELECTRICAL DISCHARGE MACHINE OPERATOR Pulse 66 04/01/2024 4:02 PM ELECTRICAL DISCHARGE MACHINE OPERATOR Temperature 36.4 C (97.5 F) 04/01/2024 4:02 PM ELECTRICAL DISCHARGE MACHINE OPERATOR Respiratory Rate 16 07/12/2011 1:36 PM CDT Oxygen Saturation 98% 04/01/2024 4:02 PM ELECTRICAL DISCHARGE MACHINE OPERATOR Inhaled Oxygen Concentration - - Weight 164.8 kg (363 lb 6.4 oz) 04/01/2024 4:02 PM ELECTRICAL DISCHARGE MACHINE OPERATOR Height 187.5 cm (6' 1.82) 04/01/2024 4:02 PM CS T Body Mass Index 46.89 04/01/2024 4:02 PM ELECTRICAL DISCHARGE MACHINE OPERATOR Plan of Treatment Upcoming Encounters Date Type Department Care Team (Late st Contact Info) Description 07/02/2024 3:00 PM CDT Office Visit [facility] [address] [place] [address] Earl Sam MD [address] [place] [address] Health Maintenance Due Date Last Done Comments [...] EPIDURAL STEROID INJECTION Routine 05/08/2024 8:16 AM ELECTRICAL DISCHARGE MACHINE OPERATOR Lumbar radiculopathy Lumbar disc herniation Spinal stenosis of lumbar region with neurogenic claudication MI NJX DX/THER SBST INTRLMNR LMBR/SAC W/IMG GDN Routine 05/08/2024 12:00 AM ELECTRICAL DISCHARGE MACHINE OPERATOR Lumbar radiculopathy Lumbar disc herniation Spinal stenosis of lumbar region with neurogenic claudication BASIC METABOLIC PANEL Routine 04/01/2024 4:52 PM ELECTRICAL DISCHARGE MACHINE OPERATOR Essential hypertension LIPID PANEL W REFLEX MEASURED LDL Routine 04/01/2024 4:52 PM ELECTRICAL DISCHARGE MACHINE OPERATOR Lipid screening ANTI HIV 1/2 Routine 04/12/2023 3:07 PM ELECTRICAL DISCHARGE MACHINE OPERATOR Screening for HIV (human immunodeficiency virus) ANTI HCV Routine 04/12/2023 3:07 PM ELECTRICAL DISCHARGE MACHINE OPERATOR Need for hepatitis C screening test from Last 3 Months or Most Recently Relevant to Health Maintenance Results * MI NJX DX/THER SBST INTRLMNR LMBR/SAC W/IMG GDN (05/08/2024 12:00 AM ELECTRICAL DISCHARGE MACHINE OPERATOR) us Earl Sam MD PB - NERVOUS SYSTEM SERVIC ES Final Result * (ABNORMAL) LIPID PANEL W REFLEX MEASURED LDL (04/01/2024 4:52 PM ELECTRICAL DISCHARGE MACHINE OPERATOR) CHOLESTEROL, TOTAL 169 <200 mg/dL [facility] [...] LDL-C. Valentin PEPE et al. CHITO. 2013;310(19): 9961-8570 (http://education.[employer]/faq/QJC834) CHOL/HDLC RATIO 5.0(H) <5.0 (calc) [facility] NON HDL CHOLESTEROL 135(H) <130 mg/dL (calc) [facility] Comment: For patients with diabetes plus 1 major ASCVD risk factor, treating to a non-HDL-C goal of <100 mg/dL (LDL-C of <70 mg/dL) is considered a therapeutic option. Blood BLOOD SPECIMEN / Unknown 04/01/2024 4:52 PM ELECTRICAL DISCHARGE MACHINE OPERATOR 04/01/2024 4:53 PM ELECTRICAL DISCHARGE MACHINE OPERATOR us Kai Stein MD CHEMISTRY Final Resu lt [facility] [address] [place] [address], [facility] [address] [place] [address] * BASIC METABOLIC PANEL (04/01/2024 4:52 PM ELECTRICAL DISCHARGE MACHINE OPERATOR) GLUCOSE 92 65 - 99 mg/dL [facility] Comment: Fasting reference interval UREA NITROGEN (BUN) 14 7 - 25 mg/dL [facility] CREATININE 0.89 0.60 - 1.29 mg/dL [facility] EGFR 106 > OR = 60 mL/min/1. 73m2 [facility] BUN/CREATININE RATIO SEE NOTE: 6 - 22 (calc) [facility] Comment: Not Reported: BUN and [...] [facility] CALCIUM 9.3 8.6 - 10.3 mg/dL [facility] Blood BLOOD SPECIMEN / Unknown 04/01/2024 4:52 PM ELECTRICAL DISCHARGE MACHINE OPERATOR 04/01/2024 4:53 PM ELECTRICAL DISCHARGE MACHINE OPERATOR Kai Stein MD CHEMISTRY Final Resu lt [facility] [address] [place] [address], [facility] [address] [place] [address] * ANTI HCV (04/12/2023 3:07 PM ELECTRICAL DISCHARGE MACHINE OPERATOR) HEPATITIS C ANTIBODY Non-Reacti ve Non-React xiang 04/12/2023 8:41 PM ELECTRICAL DISCHARGE MACHINE OPERATOR [facility] Comment:Please note, per www .CDC.gov: If a patient is known to be at high risk of HCV infection, or is symptomatic, and the physician's suspicion of HCV infection is high, HCV RNA testing is often employed and is of diagnostic value, even after an initial negative anti-HCV test result. Blood BLOOD SPECIMEN / Unknown Venipuncture / Unknown 04/12/2023 3:07 PM ELECTRICAL DISCHARGE MACHINE OPERATOR 04/12/2023 3:07 PM ELECTRICAL DISCHARGE MACHINE OPERATOR Kai Stein MD SEND OUTS Final Resu lt [facility] [address] [place] [address], [place] * ANTI HIV 1/2 [66224.0] (04/12/2023 3:07 PM ELECTRICAL DISCHARGE MACHINE OPERATOR) HIV-1/HIV-2 SCREEN Non-Reacti ve Non-Reacti ve 04/12/2023 8:27 PM ELECTRICAL DISCHARGE MACHINE OPERATOR [facility] Comment:HIV-1 p24 and HIV-1/ HIV-2 Ab Not Detected. Blood BLOOD SPECIMEN / Unknown Venipuncture / Unknown 04/12/2023 3:07 PM ELECTRICAL DISCHARGE MACHINE OPERATOR 04/12/2023 3:07 PM ELECTRICAL DISCHARGE MACHINE OPERATOR us Kai Stein MD SEND OUTS Final Resu lt [facility] [address] [place] [address], [place] from Last 3 Months or Most Recently Relevant to Health Maintenance Insurance [facility] Care Teams Maintenance Representative Relationship Specialty Start Date End Date Kai Stein MD [address] [place] [address] PCP - General Family Practice 10/25/22 Tate Coreas MD Infectious Disease Infectious Diseases 06/21/11 Earl Sam MD [address] [place] [address] Sports Medicine - Family Medicine 10/25/22
--- OUTSIDE RECORDS SUMMARY | 2024-05-23 22:37 | XMS_ITS | Continuity of Care Document ---
Author Organization [facility] Address [address] [place] [address] Phone Care Team Providers Care Seo Strategist Name Role Phone Mallory PATEL, PhD, Francois Unavailable Unavai lable Allergies, Adverse Reactions, Alerts Substance Reaction Status Criticality PENICILLIN Active No Information Medications Medication Instructions Dosage Effective Dates (start - stop) Status Comments GABAPENTIN (unknown strength) Not Available - Active TYLENOL (unknown strength) Not Available - Active PERCOCET (unknown strength) Not Available - No Longer Active GABAPENTIN (unknown strength) Not Available - No Longer Active SENNA (unknown strength) Not Available - No Longer Active TIZANIDINE HCL (unknown strength) Not Available [...] Visit,Est, Mod [facility], [address], [facility] [place], [id number], [place] tel:[phone] [facility] - [facility] Other intervertebral disc displacement, lumbar region Jun-3 2 Mallory Parrish. [facility], [address], [place], [address], [place]. tel:[phone] Referring Provider: Vikas Thakur, [facility] [address] [place], [address]. tel:[phone] Office/Outpat ient Visit,Est, Low [facility], [address], [facility] [place], [id number], [place] tel:[phone] [facility] Other intervertebral disc displacement, lumbar region 0 Tejada Francois. [facility], [address], [place], [address], [place]. tel:[phone] Referring Provider: Vikas Thakur, [facility] [address] [place], [address]. tel:[phone] Office/Outpat ient Visit,Est, Mod [facility], [address], [facility], [place], [id number], [place] tel:[phone] [facility] Other intervertebral disc displacement, lumbar region 0 Mallory Parrish. [facility], [address], [place], [address], [place]. tel:[phone] Referring Provider: Vikas Thakur, [facility] [address] [place], [address]. tel:[phone] Office/Outpat ient Visit,New, Mod [facility], [address], [facility] [place], [id number], [place] tel:[phone] [facility] Other intervertebral disc displacement, lumbar region 9 Colom Steffany Kessler. [facility], [address], [place], [address], [place]. tel:[phone] Referring Provider: Vikas Thakur, [facility] [address] [place], [address]. tel:[phone] Family History Family Member Type Diagnosis Age At Onset No Information Payers Payer name Insurance type Covered constitution party ID Nhan meza(s) [facility] [id number] [facility] [id number] Social History Type Description Quantity Date Captured [...]
== END 2024-05-24 00:21 | disposition home or self-care (01) ==
PROVIDERS: Emergency Provider Family Medicine; PCP Family Medicine
DX: S60.212A Contusion of left wrist, initial encounter (principal)
CPT/HCPCS: 93971; 99283; 99284

== ENCOUNTER 2025-04-02 06:49 | Outpatient (CLI) | payer BC, SELFPAY | END 2025-04-02 06:50 | disposition home or self-care (01) | LOC: INJ CL 06:49 | PROVIDERS: PCP Family Medicine; Visit Provider Family Medicine | DX: M54.16 Radiculopathy, lumbar region (principal); M48.062 Spinal stenosis, lumbar region with neurogenic claudication | CPT/HCPCS: 62323; Q9966 ==